=== PATIENT | male | born 1955 | race Caucasian/White ===

== ENCOUNTER → 2024-04-30 | Outpatient (CLI) | payer MEDICAID, SELFPAY ==
--- NOTE | 2024-04-30 | XR_ITS ---
Examination: Knee bilateral, 6 views Technique: Knee AP, lateral, oblique each knee total 6 views Date and time of exam: April 30, 1999 2539 hours INDICATIONS: Bilateral knee pain beginning 3 years ago. FINDINGS: Mild to moderate osteopenia Bilateral moderate tricompartment osteoarthritis No fracture or dislocation involving either knee IMPRESSION: Bilateral moderate tricompartment osteoarthritis
--- NOTE | 2024-04-30 | XR_ITS ---
Examination: Ankle Bilateral, 6 views Technique: AP oblique lateral each ankle total 6 views Exam date and time: April 30, 1999 2512 noon INDICATIONS: Bilateral ankle pain 3 years. FINDINGS: Mild to moderate osteopenia Soft tissue vascular calcification Bilateral mild osteoarthritis tibiotalar joints 6 mm plantar left bony calcaneal spur Impression: Bilateral mild osteoarthritis tibiotalar joints 6 mm left plantar bony calcaneal spur
--- NOTE | 2024-04-30 | XR_ITS ---
Examination: Bilateral hands, 6 views. Technique: AP, Oblique, Lateral each hand total 6 views Date and time of exam: April 30, 2024 1139 hours INDICATIONS: Numbness involving left hand beginning 3 years ago. FINDINGS: Mild juxta-articular bone demineralization. No fracture Mild bilateral osteoarthritis first carpometacarpal joints Mild bilateral osteoarthritis distal interphalangeal joints second through fifth digits and interphalangeal joints first digits No erosive arthritis IMPRESSION: Osteoarthritis as above On the lateral views both ulnas are positioned dorsally, clinical correlation advised
--- NOTE | 2024-04-30 | XR_ITS ---
Examination: PA lateral chest 2 views TECHNIQUE: Upright PA lateral chest 2 views Exam date and time: April 30, 2024 1148 hours INDICATIONS: Right-sided chest pain today. FINDINGS: Normal heart size Lungs are clear. Moderate osteopenia IMPRESSION: No active disease
== END | disposition home or self-care (01) ==
PROVIDERS: PCP Nurse Practitioner Family; Referring Provider Nurse Practitioner Family; Visit Provider Nurse Practitioner Family
DX: M19.042 Primary osteoarthritis, left hand (principal); M19.041 Primary osteoarthritis, right hand; M17.0 Bilateral primary osteoarthritis of knee; M19.072 Primary osteoarthritis, left ankle and foot; M19.071 Primary osteoarthritis, right ankle and foot; M77.32 Calcaneal spur, left foot; R07.9 Chest pain, unspecified
CPT/HCPCS: 71046; 73130; 73562; 73610